=== PATIENT | female | born 1980 | race Caucasian/White ===

== ENCOUNTER 2017-05-26 18:45 | Emergency (ER) | payer OTHER ==
[~2017-05-26] VITALS: Ht 167.6 cm; Wt 58.8 kg
[2017-05-26 18:58] VITALS: BP 96/57
== END 2017-05-26 20:14 | disposition home or self-care (01) ==
LOC: EXP 18:45 → EME 18:45 → EXP 20:14
DX: S90.31XA Contusion of right foot, initial encounter (principal); W22.8XXA Striking against or struck by other objects, initial encounter; F17.200 Nicotine dependence, unspecified, uncomplicated
CPT/HCPCS: 73630; 99281; 99283